=== PATIENT | male | born 1950 | race Caucasian/White ===

== ENCOUNTER → 2020-11-28 09:37 | Outpatient (CLI) | payer MEDICARE, SELFPAY ==
--- NOTE | 2020-11-28 09:46 | XR_ITS ---
PROCEDURE: XR SHOULDER LT MIN 2V CLINICAL INDICATION: S/P LT SHOULDER INJURY, OLD FALL COMPARISON: No exams were available for comparison FINDINGS: No fracture or dislocation. No lytic or blastic change. There is normal mineralization. There is a high-riding humeral head with severe subacromial stenosis consistent with rotator tear. Osteoarthritic changes are present at the glenohumeral joint. Other findings:None. 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 Dictated by: Elie George MD 11/28/2020 10:08 Elie George MD in [place] 11/28/2020 10:08
== END ==
PROVIDERS: PCP Internal Medicine; Visit Provider Internal Medicine
DX: M25.512 Pain in left shoulder (principal)
CPT/HCPCS: 73030

== ENCOUNTER → 2021-03-06 17:57 | Outpatient (CLI) | payer MEDICARE, SELFPAY ==
[2021-03-06 19:18] LABS: Basophils # 0.1 K/mm3 (0-0.2); Basophils % 0.7 % (0.1-2.0); Eosinophils # 0.3 K/mm3 (0.0-0.4); Eosinophils % 4.2 % (0.1-12.0); Hematocrit 45.4 % (42.0-52.0); Hemoglobin 15.5 g/dL (14.1-18.0); Lymphocytes # 1.4 K/mm3 (0.7-4.5); Lymphocytes % 16.9 % (10-50); Mean Corpuscular HGB Conc 34.1 g/dL (31.8-35.4); Mean Corpuscular Volume 90.6 fl (80-94); Mean Platelet Volume 10.4 fl (7.4-10.4); Monocytes # 0.6 K/mm3 (0.1-1.0); Monocytes % 6.9 % (1.7-9.3); Neutrophils # 5.7 K/mm3 (1.8-7.8); Neutrophils % 71.2 % (37.0-80.0); Platelet Count 321 K/mm3 (142-424); Red Blood Count 5.01 M/mm3 (4.60-6.20); Red Cell Distribution Width 14.1 % (11.5-17.5)
[2021-03-06 19:32] LABS: Chloride 101 mmol/L (98-107); Sodium 139 mmol/L (136-145)
[2021-03-06 19:33] LABS: Potassium 4.4 mmoL/L (3.5-5.1)
[2021-03-06 19:35] LABS: Alanine Aminotransferase 21 U/L (12-78); Alkaline Phosphatase 69 U/L (38-126); Aspartate Amino Transferase 41 U/L (17-59); Bilirubin,Total 0.6 mg/dl (0.2-1.3); Blood Urea Nitrogen 18 mg/dl (9-20); Estimated Glomerular Filt Rate 60 ml/min (>60); GFR (African American) 72 ML/MIN (>60)
[2021-03-06 19:36] LABS: Albumin Level 4.4 g/dl (3.5-5.0); Albumin/Globulin Ratio 1.5 (1.1-1.8); Anion Gap 15.4 mEq/L (5-15); Calcium 10.2 mg/dl (8.4-10.2); Carbon Dioxide 27 mmol/L (22.0-30.0); Chol/HDL Ratio 3.5 (1-3.5); Cholesterol 133 mg/dl (140-200); Globulin 2.9 g/dL (1.3-3.2); Glucose 98 mg/dl (74-100); HDL Cholesterol 38 mg/dl (40-60); Total Protein,Serum 7.3 g/dl (6.3-8.2); Triglycerides 156 mg/dl (30-150); VLDL Cholesterol 31 mg/dL (0-40)
[2021-03-06 19:47] LABS: Direct LDL Cholesterol 65.98 mg/dL (100-129)
[2021-03-06 19:53] LABS: Free T4 (Free Thyroxine) 0.95 ng/dl (0.78-2.19)
[2021-03-06 19:54] LABS: 25-OH Vitamin D, Total 61.2 ng/mL (30-100)
[2021-03-06 20:14] LABS: Thyroid Stimulating Hormone 1.99 uIU/mL (0.465-4.68)
== END ==
PROVIDERS: Visit Provider Emergency Medicine
DX: E55.9 Vitamin D deficiency, unspecified (principal); R53.83 Other fatigue; E78.5 Hyperlipidemia, unspecified
CPT/HCPCS: 80053; 80061; 82306; 84439; 84443; 85025

== ENCOUNTER → 2021-03-20 09:59 | Outpatient (CLI) | payer MEDICARE, SELFPAY ==
--- NOTE | 2021-03-20 10:00 | CA_ITS ---
APPROVED REPORT EXAM: Comprehensive 2D, Doppler, and color-flow Echocardiogram Box Sealing Machine Catcher: Barbara Vela RVT Ht: 5 ft 8 in Wt: 156lbs BSA: 1.84 BP: 138/78 mmHg Indications: MURMUR,HTN,HLD 2D Dimensions IVSd 1.20 cm M: 0.6-1.2 LVEF (Visual) 65.20 % PWd 0.84 cm M: 0.6 - 1.2 LA Volume 32.00 mL LVDd 3.70 cm M: 4.2 - 5.9 LA Volume Index 17.39 mL/m2 (M/F) 16-34 LVDs 2.40 cm M: 2.5 - 4.0 LVOT 2.22 cm (M/F) 1.5-2.5 M-Mode Dimensions LA Diam 4.12 cm (1.9-4.0) Ao Diam 3.30 cm (2.0-3.7) TAPSE 1.98 (<1.7) LV Diastology E Decel Time 350.00 (160-240 msec) E/A Ratio 0.5 MED E' 5.40 (< 7 cm/sec) E'/MED E' Ratio 8.07 (>14) LAT E' 11.10 (<10 cm/sec) E/LAT E' Ratio 3.93 (>14) Aortic Valve AI PHT 1375.00 ms Mitral Valve MV E Max Antonio. 44.00 (40-130 cm/s) MV A Velocity 83.00 (40-130 cm/s) E/A Ratio 0.52 MV Decel. Time 350.00 (160-240 ms) MV PHT 103.00 ms Pulmonary Valve PV Peak Velocity 59.00 (50-150 cm/s) Tricuspid Valve TR P. Velocity 174.00 cm/s RAP Estimate 10.00 mmHg RVSP 22.20 mmHg Left Ventricle Left atrium is mildly enlarged, left ventricle is normal size, mild concentric left ventricular hypertrophy, visually estimated ejection fraction 55% with no regional wall motion abnormality, grade 1 diastolic dysfunction seen without tissue Doppler evidence of raise left atrial pressure. Right Ventricle Right atrium and right ventricle are normal size and contractility. Aortic Valve Aortic valve is minimally thickened and fibrosed, there is no aortic stenosis, there is mild aortic insufficiency. Mitral Valve Mitral valve is grossly normal, there is trace mitral regurgitation. Tricuspid Valve Tricuspid valve grossly normal, there is trace tricuspid regurgitation, tricuspid regurgitation jet velocity is inadequate for calculation of the right ventricular systolic pressure. Pulmonic Valve Pulmonic valve is poorly visualized. Great Vessels Aortic root is normal size. Inferior vena cava is poorly visualized. Pericardium No significant pericardial effusion noted. Conclusion 1. Mildly enlarged left atrium, normal left ventricular size, mild concentric left ventricular hypertrophy, visually estimated ejection fraction 55% with no regional wall motion abnormality, grade 1 diastolic dysfunction seen without tissue Doppler evidence of raise left atrial pressure. 2. Mild aortic, trace mitral and tricuspid regurgitation. 3. No significant pericardial effusion. 4. Inferior vena cava is poorly visualized. Electronically signed by : Demetrius Dewey MD 03/20/2021 19:57:51
== END ==
PROVIDERS: PCP Emergency Medicine; Visit Provider Emergency Medicine
DX: R01.1 Cardiac murmur, unspecified (principal)
CPT/HCPCS: 93306

== ENCOUNTER → 2022-06-08 15:38 | Outpatient (CLI) | payer MEDICARE, SELFPAY ==
[2022-06-08 16:13] LABS: Basophils # 0.1 K/mm3 (0-0.2); Basophils % 0.8 % (0.1-2.0); Eosinophils # 0.3 K/mm3 (0.0-0.4); Eosinophils % 4.3 % (0.1-12.0); Hematocrit 45.2 % (42.0-52.0); Hemoglobin 15.2 g/dL (14.1-18.0); Lymphocytes # 1.2 K/mm3 (0.7-4.5); Lymphocytes % 19.8 % (10-50); Mean Corpuscular HGB Conc 33.7 g/dL (31.8-35.4); Mean Corpuscular Hemoglobin 30.9 pg (27.0-31.2); Mean Corpuscular Volume 91.5 fl (80-94); Mean Platelet Volume 10.2 fl (7.4-10.4); Monocytes # 0.5 K/mm3 (0.1-1.0); Monocytes % 8.5 % (1.7-9.3); Neutrophils % 66.6 % (37.0-80.0); Platelet Count 297 K/mm3 (142-424); Red Blood Count 4.93 M/mm3 (4.60-6.20); Red Cell Distribution Width 13.8 % (11.5-17.5)
[2022-06-08 16:34] LABS: Alanine Aminotransferase 20 U/L (12-78); Albumin Level 4.1 g/dl (3.5-5.0); Albumin/Globulin Ratio 1.5 (1.1-1.8); Alkaline Phosphatase 61 U/L (38-126); Anion Gap 10.5 mEq/L (5-15); Aspartate Amino Transferase 32 U/L (17-59); Bilirubin,Total 0.9 mg/dl (0.2-1.3); Blood Urea Nitrogen 18 mg/dl (9-20); Carbon Dioxide 28 mmol/L (22.0-30.0); Chloride 102 mmol/L (98-107); Chol/HDL Ratio 5.3 (1-3.5); Cholesterol 190 mg/dl (140-200); Estimated Glomerular Filt Rate 54 ml/min (>60); GFR (African American) 65 ML/MIN (>60); Globulin 2.7 g/dL (1.3-3.2); Glucose 104 mg/dl (74-100); HDL Cholesterol 36 mg/dl (40-60); Potassium 4.5 mmoL/L (3.5-5.1); Sodium 136 mmol/L (136-145); Total Protein,Serum 6.8 g/dl (6.3-8.2); Triglycerides 138 mg/dl (30-150); VLDL Cholesterol 28 mg/dL (0-40)
[2022-06-08 16:45] LABS: Direct LDL Cholesterol 111.59 mg/dL (100-129)
[2022-06-08 17:10] LABS: 25-OH Vitamin D, Total 49.2 ng/mL (30-100)
[2022-06-08 17:11] LABS: Free T4 (Free Thyroxine) 0.84 ng/dl (0.78-2.19)
== END ==
PROVIDERS: PCP Emergency Medicine; Visit Provider Emergency Medicine
DX: E55.9 Vitamin D deficiency, unspecified (principal); I10 Essential (primary) hypertension; Z79.899 Other long term (current) drug therapy
CPT/HCPCS: 80053; 80061; 82306; 84439; 84443; 85025

== ENCOUNTER 2022-07-02 10:17 | Emergency (ER) | payer MEDICARE, SELFPAY ==
[2022-07-02] VITALS (11 sets, daily range): BP systolic 120–163; BP diastolic 64–78; PULSE 54–76; RESP 18–20; TEMP 36.6–36.8; O2SAT 95–99; BMI 23.6; BMI 22.8
--- NOTE | 2022-07-02 11:12 | EXP.UTC ---
Discharge Plan Disposition Patient Disposition: Home, Self-Care Condition: Good Prescriptions Prescriptions: No Action aspirin [Adult Aspirin Regimen] 81 mg tablet,delayed release (DR/EC) 81 mg PO DAILY tamsulosin [Flomax] 0.4 mg capsule 0.4 mg PO DAILY metoprolol tartrate 50 mg tablet See Rx Instructions .ROUTE .COMPLEX Rx Instructions: Take 1 tablet by mouth twice daily rosuvastatin 10 mg tablet See Rx Instructions .ROUTE .COMPLEX Rx Instructions: TAKE 1 TABLET BY MOUTH AT BEDTIME Referrals Follow up/Referrals: Mart Liu MD [Primary Care Provider] - See instructions Activity Restrictions/Add. Instructions Additional Instructions/Restrictions: Follow-up with ENT at next week. Follow-up with orthopedics and seen at the end of this week. Return for any concerns within the next few days. Clinical Impressions Clinical Impression: Facial bones, closed fracture, Closed hand fracture Discharge ED Provider: Vincent Roblero [facility] <Maribeth Guerra APRN - Last Filed: 07/02/22 20:02> General Chief complaint: Fall Stated complaint: [email or web address] [id number] LT eye bruising, LT hand pain Mode of Arrival: Ambulatory Source of Information: Patient Limitations: No Limitations Time Seen by Provider: 07/02/22 11:12 Description of Symptoms (Recalled from Triage Doc. by RN): fell yesterday and hit a flower pot. His left eye is brusied, left hand swollen, pain in wrist, and left ribs hurt. HEENT Symptoms (Recalled from RN notes): No Resp Symptoms (Recalled from RN notes): No Skin Symptoms (Recalled from RN notes): Yes MS Symptoms (Recalled from RN notes): No Functional Status (Recalled from RN notes): n/a History of Present Illness Provider Complaint: Patient states that he tripped and fell over flower pot at home and he fell States that he has bruising around eye thinks it maybe from his glasses States area is sore and had some bleeding yesterday but that has since closed and the area under his eyes is sore, States that he is having pain in his left hand and little finger and pain in his left rib area States that today his hand was hurting worse and still having rib pain so he came in Denies LOC denies SOA Related Data Home Medications Medication Instructions Recorded Confirmed aspirin 81 mg tablet,delayed 81 mg PO DAILY . 07/02/22 07/02/22 release (Adult Aspirin Regimen) metoprolol tartrate 50 mg tablet See Rx Instructions .Route 07/02/22 07/02/22 .COMPLEX . rosuvastatin 10 mg tablet See Rx Instructions .Route 07/02/22 07/02/22 .COMPLEX . tamsulosin 0.4 mg capsule (Flomax) 0.4 mg PO DAILY . 07/02/22 07/02/22 Allergies Allergy/AdvReac Type Severity Reaction Status Date / Time amlodipine AdvReac Intermediate swelling Verified 07/02/22 11:11 Worker's Comp Is this a Worker's Comp case?: No PFSH <Maribeth Guerra APRN - Last Filed: 07/02/22 20:02> PFS Disclaimer: The information contained in this section may have been updated after the patient was seen, as this information can be updated by other users. Social History Smoking Status: Never smoker alcohol intake: never substance use type: denies use current occupational status: employed Travel in the last 8 weeks: None <Maribeth Guerra APRN - Last Filed: 07/02/22 20:02> ROS Obtained: Yes All systems reviewed & no additional complaints except as documented and Yes Systems reviewed as appropriate & no additional complaints except as documented Constitutional Constitutional: Reports system reviewed and no additional complaints, except as documented and Reports as per HPI Eyes Eyes: Reports system reviewed and no additional complaints, except as documented, Reports as per HPI, Denies blurry vision and Denies change in vision Comments: bruising noted around eye with cut noted on eyelash area and on cheek tender to touch ENT Ears, Nose, Mouth, and Throat: Reports s
--- NOTE | 2022-07-02 11:14 | XR_ITS ---
FINAL REPORT CLINICAL HISTORY: fall FINDINGS: A PA view of the chest and oblique views of the left ribs were obtained. There is no prior exam for comparison. The cardiac and mediastinal silhouettes are within normal limits. There is evidence of prior granulomatous disease. There is linear opacity in the left lung base which is likely atelectasis or scarring. There is no pneumothorax. Oblique views of the left ribs reveal no displaced rib fracture. IMPRESSION: No acute left rib fracture and no pneumothorax. Reviewed, Interpreted and Dictated by Joanne Osman MD Transcribed by Chel Krueger Authenticated and [facility]
--- NOTE | 2022-07-02 11:14 | XR_ITS ---
FINAL REPORT CLINICAL HISTORY: fall FINDINGS: AP, oblique, and lateral views of the left hand were obtained. There is no prior exam for comparison. There is a fracture at the base of the 5th metacarpal which extends to the 5th CMC joint. No other acute fracture is identified. Deformity of the distal 5th metacarpal is chronic. There is mild degenerative disease. There is mild degenerative joint disease. IMPRESSION: Fracture of the base of the 5th metacarpal extending to the 5th CMC joint. Deformity of the distal 5th metacarpal is chronic. Reviewed, Interpreted and Dictated by Joanne Osman MD Transcribed by Chel Krueger Authenticated and [facility]
--- NOTE | 2022-07-02 11:14 | XR_ITS ---
FINAL REPORT CLINICAL HISTORY: fall FINDINGS: AP, oblique, and lateral views of the left wrist were obtained. There is no prior exam for comparison. There is no acute fracture or dislocation. There is irregularity of the base of the 5th metacarpal. There is multi joint degenerative disease. The soft tissues are normal. IMPRESSION: No acute osseous abnormality of the left wrist. Irregularity at the base of the 5th metacarpal, see report for left hand for further details. Reviewed, Interpreted and Dictated by Joanne Osman MD Transcribed by Chel Krueger Authenticated and [facility]
--- NOTE | 2022-07-02 11:16 | XR_ITS ---
FINAL REPORT CLINICAL HISTORY: fall FINDINGS: FACIAL BONES 3 views were obtained. There is an age indeterminate irregularity of the floor of the left orbit which may be chronic, however, there may be a small amount of fluid or mucoperiosteal thickening in the left maxillary sinus. No other acute osseous abnormality is seen. Remaining paranasal sinuses are grossly clear. Nasal septum is midline. IMPRESSION: Age indeterminate irregularity of the floor the left orbit, may be chronic. Consider CT as a more sensitive exam. Reviewed, Interpreted and Dictated by Joanne Osman MD Transcribed by Chel Krueger Authenticated and [facility]
--- NOTE | 2022-07-02 12:53 | CT_ITS ---
FINAL REPORT TECHNIQUE: Thin section axial images were obtained through the face without contrast. Coronal reconstruction images are obtained from the axial data. CLINICAL HISTORY: trauma, fall, hit lt eye/side of face FINDINGS: There is a fracture of the left orbital floor which is nondisplaced. There is no herniation of fat or muscle through the defect. There is a small amount of air within the lateral or mint, adjacent to the lateral rectus muscle. There are fractures through the lateral roof and lateral orbital wall which are nondisplaced. Findings are best seen on axial image 21. There is also a fracture of the anterior wall and likely of the lateral wall of the left maxillary sinus. IMPRESSION: Left orbital and left maxillary sinus fractures as above. Small amount of fluid seen in the left maxillary sinus. Reviewed, Interpreted and Dictated by Joanne Osman MD Transcribed by Delia Hu Authenticated and [facility]
--- NOTE | 2022-07-02 12:53 | CT_ITS ---
FINAL REPORT TECHNIQUE: Thin section axial images were obtained through the cervical spine without contrast. Multiplanar reconstruction images were obtained from the axial data. Exam was performed using dose reduction techniques. CLINICAL HISTORY: trauma, fall, hit lt eye/side of face FINDINGS: There is no acute fracture or acute malalignment of the cervical spine. There is no evidence of unilateral or bilateral facet lock. There is multilevel degenerative disc disease which is most pronounced in the mid cervical spine. No acute paraspinal abnormality is identified. IMPRESSION: No acute osseous abnormality of the cervical spine. Degenerative disc disease. Reviewed, Interpreted and Dictated by Joanne Osman MD Transcribed by Chel Krueger Authenticated and . [facility]
--- NOTE | 2022-07-02 12:53 | CT_ITS ---
FINAL REPORT TECHNIQUE: Thin section axial images were obtained from skull base to vertex without contrast. Coronal reconstruction images were obtained from the axial data. Exam was performed using dose reduction technique. CLINICAL HISTORY: head injury, fall, hit lt eye/side of face FINDINGS: There is mild, age-appropriate atrophy. Periventricular hypodensity likely represents chronic small vessel ischemia. There is no mass effect or midline shift. There is no hydrocephalus. There is no intracranial hemorrhage. The posterior fossa is without acute abnormality. The basilar cisterns are preserved. There is left periorbital soft tissue edema. Air-fluid level is seen in the left maxillary sinus. No skull fracture identified. IMPRESSION: No acute intracranial abnormality. Fluid in left maxillary sinus with left periorbital soft tissue edema. See CT face. Reviewed, Interpreted and Dictated by Joanne Osman MD Transcribed by Delia Hu Authenticated and [facility]
--- NOTE | 2022-07-02 13:36 | PC.NURSE ---
rounded on pt states no complaints at this time. @ bs
--- NOTE | 2022-07-02 14:21 | PC.NURSE ---
rounded on pt. resting in bed. call light within reach. no questions or concerns voiced.
--- NOTE | 2022-07-02 15:00 | PC.NURSE ---
STEFAN NASSAR speaking with [facility]
--- NOTE | 2022-07-02 15:04 | PC.NURSE ---
rad states sending down preliminary on ct cspine
--- NOTE | 2022-07-02 15:04 | PC.NURSE ---
[facility] requesting face sheet faxed to [phone] states they are setting up a f/u appt for pt in clinic next, they will call the pt with appt.
--- NOTE | 2022-07-02 15:07 | PC.NURSE ---
face sheet faxed at this time
--- NOTE | 2022-07-02 15:34 | PC.NURSE ---
Bernadette from [facility] called back to [facility] ED to obtain patient contact number, NOK, and address for follow up
== END 2022-07-02 15:19 | disposition home or self-care (01) ==
LOC: UTC 10:30 → ER 12:49
PROVIDERS: Emergency Provider Emergency Medicine; PCP Emergency Medicine
DX: S02.32XA Fracture of orbital floor, left side, initial encounter for closed fracture (principal); S02.40DA Maxillary fracture, left side, initial encounter for closed fracture; S62.306A Unspecified fracture of fifth metacarpal bone, right hand, initial encounter for closed fracture; W01.0XXA Fall on same level from slipping, tripping and stumbling without subsequent striking against object, initial encounter
CPT/HCPCS: 29125; 70150; 70450; 70486; 71101; 72125; 73110; 73130; 99284; 99285

== ENCOUNTER → 2023-01-08 11:21 | Outpatient (CLI) | payer MEDICARE, SELFPAY ==
--- NOTE | 2023-01-08 11:25 | XR_ITS ---
FINAL REPORT CLINICAL HISTORY: left shoulder pain, fell in feb, pops when raising arms FINDINGS: 3 views of the left shoulder were obtained. There is no acute fracture or dislocation. There are moderate degenerative changes of the acromioclavicular and glenohumeral joints. There are no soft tissue abnormalities. IMPRESSION: No acute process. Reviewed, Interpreted and Dictated by Archie Salas III, MD Transcribed by Evgeny Graves Authenticated and . [facility]
== END ==
PROVIDERS: PCP Emergency Medicine; Visit Provider Orthopaedic Surgery
DX: M25.512 Pain in left shoulder (principal)
CPT/HCPCS: 73030

== ENCOUNTER 2023-03-07 14:00 | Outpatient (RCR) | payer MEDICARE, SELFPAY ==
--- NOTE | 2023-01-14 11:57 | HMH.OTOPEV ---
OT Inpatient Evaluation Rehab OT Outpatient Eval Start: 01/14/23 11:33 Freq: Status: Active Protocol: Document 01/14/23 11:33 RMMAGNO (Rec: 01/14/23 11:57 [facility]ITAL[facility]ilio [id number]) E-signed By Lan Elliott, OT Outpatient Therapy Subjective History Subjective History Pt is a 72 year old male who reports to therapy for initial evaluation to left shoulder. Pt initially injured left shoulder in May 2022 when he fell on concrete landing on left shoulder. Since this injury, pt has has pain and decreased AROM at left shoulder. Pt has had an x-ray with no acute findings. Pt saw ortho on 01/09/23 and received a steroid injection to assist in pain. Upon evaluation, pt has significant weakness and lack of motion in abduction. He is unable to hold arm in supination at 90 degrees. He also has significant lack of motion in external rotation and internal rotation. Therapist does have concerns for possible rotator cuff tear. 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 Pt will continue to be seen twice a week in order to address left shoulder deficits. New diagnosis of cancer in past 12 No months? Chief Complaint Pain,Weakness Symptom Type Ache,Throb Symptoms Relieved By Rest/Positioning Symptoms Aggravated By Physical Activity,Lifting Prior Functional Limitations None Current Functional Limitations Reaching,Lifting,Housework, Dressing,Driving,Sleeping, Recreation Activity Symptom Description Intermittent,Activity Dependent Level of pain today (0-10) 0 Pain scale - at its best (0-10) 0 Pain scale - at its worst (0-10) 5 Shoulder/Elbow Eval Shoulder Objective Measurements Shoulder ROM Left Shoulder Abduction Active Range of 50 degrees Motion (degrees) Shoulder Flexion Active Range of Motion 120 degrees (degrees) Query Text: Shoulder External Rotation Active Range 20 degrees of Motion (degrees) Shoulder Internal Rotation Active Range 20 degrees of Motion (degrees) Shoulder MMT Shoulder Abduction Strength Grade 2+ Poor+ Shoulder Flexion Strength Grade 3- Fair- Shoulder External Rotation Strength 2+ Poor+ Grade Shoulder Internal Rotation Strength 2+ Poor+ Grade Shoulder Strength Patient Testing Sitting Position Elbow Objective Measurements QuickDASH Activities Please rate your ability to do the following activities in the last week by selecting the number below the appropriate response. 1. Open a tight or new jar. Mild difficulty 2. Do heavy welding machine operator arc (e.g., wash Mild difficulty goyal, floors). 3. Carry a shopping bag or briefcase. No difficulty 4. Wash your back. Mild difficulty 5. Use a knife to cut food. No difficulty 6. Recreational activities in which you Moderate difficulty take some force or impact through your arm, shoulder, or hand (e.g., golf, hammering, tennis, etc.). 7. During the past week, to what extent Not at all has your arm, shoulder or hand problem interfered with your normal social activities with family, friends, neighbors or groups? 8. During the past week, were you Slightly limited limited in your work or other regular daily activites as a result of your arm, shoulder or hand problem? 9. Arm, shoulder or hand pain. Moderate 10. Tingling (pins and needles) in your None arm, shoulder or hand. 11. During the past week, how much No difficulty difficulty have you had sleeping because of the pain in your arm, shoulder or hand? Quick DASH 19 Work Module (optional) The following questions ask about the impact of your arm, shoulder or hand problem on your ability to work (including homemaking if that is your main work role). 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 Yes 1. Using your usual technique for your Moderate difficulty work? 2. Doing your usual work because of arm, Mild difficulty shoulder or hand pain? 3. Doing your work as well as you would Mild difficulty like? 4. Spending your usual amount of time Mild difficulty doing your work? Quick Dash Work Module Score 9 OT Outpatient Assessment Impairments Problems/Impairments Palpation Tenderness,Impaired Range of Motion,Impaired Strength,Impaired Endurance, Impaired Lifting,Impaired Dressing,Impaired Household Care,Impaired Work Activities, Subjective C/O Pain Prognosis Rehab Potential Good Clinical Impression Consistent with Diagnosis Yes Short Term Goals Number of Weeks 3 Increase Range of Motion Yes: Flex: 130 Abd: 90 ER: 50 IR: 40 Increase Strength Yes: 3,3+/5 throughout left shoulder Increase Endurance Yes: Pt will tolerate L shoulder exercises for ~20 min prior to rest. Decrease Subjective C/O Pain Yes: 3/10 at worst Patient to be Ind w/ HEP Yes: AAROM Exercises; pulleys Mcfp Goals Number of Weeks 6 Increase Range of Motion Yes: Flex: 150 Abd: 110 ER: 75 ER: 60 Increase Strength Yes: 4-/5 throughout left shoulder Increase Endurance Yes: Pt will tolerate ~30 minutes of L shoulder exercises prior to rest. Decrease Subjective C/O Pain Yes: 04/17 at worst Patient to be Ind w/ Advanced HEP Yes: Advanced strengthening Outpatient Therapy Plan of Care Treatment Plan May Include Therapeutic Exercise Including Home Yes Exercise Program Manual Therapy Techniques Yes Therapeutic Activities to Return to Yes Previous Functional/Work Level ADL/Self Care Education Yes Thermal Modalities Yes Electrical Stimulation Yes Ultrasound/Phonophoresis Yes Iontophoresis Yes Parrafin Yes Orthotics/Bracing/Splinting Yes Massage Yes Eval/Re-Eval Yes Frequency Times per week 2 Duration Number of Weeks 6 Addendums This patient is a candidate for social No or vocational rehab? Patient/Guardian verbally acknowledges Yes understanding of treatment program and consents to further treatment? Patient/Guardian verbally acknowledges Yes understanding of diagnosis, prognosis and goals for treatment? Eval Complexity OT Charge 40943 - Moderate Complexity PHYSICIAN CERTIFICATION: I certify the specified therapy services for [facility] are required, authorized, and reviewed every 30 days.
--- NOTE | 2023-02-14 13:47 | HMH.RHREAS ---
Rehab Reassessment Rehab OP Re-assessment Start: 01/14/23 11:33 Freq: Status: Active Protocol: Document 02/14/23 13:40 FERDINAND (Rec: 02/14/23 13:47 FERDINAND [id number]) E-signed By Lan Elliott OT Rehab Re-assessment Subjective Subjective I still can't move it right. Objective Objective Notes Pt continues to be seen twice a week to address left shoulder deficits. Each session pt engages in AROM, AAROM, and strengthening exercises for left shoulder. Pt is also passively ranged in all planes; flexion, abduction, ER, and IR. Modalities are provided in order to decrease pain/ inflammation. Assessment Progress Assessment Slower Than Expected Assessment Notes At this time, pt demonstrates minimal improvement with AROM or strength at left shoulder. He continues to remain significantly limited with left arm. However, he reports he no longer has any pain in the arm. He also continues to have difficulty with daily tasks. Therapist recommends to continue therapy, but return to ortho as soon as possible for further evaluation and tx plan. Pt understanding and agreeable. Current AROM L shoulder Flex: 115 degrees Abd: 62 degrees ER: 45 degrees IR: [address] goals [address] and 5 LT and 5 Goals Not Met See below Revised Goals ST-3 LT-3 Plan Plan Continue with OT plan of care at this time to prevent any further loss of AROM or strength at left shoulder. Therapist recommends pt return to ortho for further evaluation and tx plan. Frequency of Therapy 2x's a week Duration of therapy 4 more weeks Time and Billing Re-Eval Time 11 Re-Eval Billing Units 1 PHYSICIAN CERTIFICATION: I certify the specified therapy services for Bon Marks are required, authorized, and reviewed every 30 days.
== END 2023-03-07 15:00 | disposition home or self-care (01) ==
LOC: OT 14:00
PROVIDERS: PCP Emergency Medicine; Visit Provider Orthopaedic Surgery
DX: M25.512 Pain in left shoulder (principal); M75.102 Unspecified rotator cuff tear or rupture of left shoulder, not specified as traumatic; M12.811 Other specific arthropathies, not elsewhere classified, right shoulder
CPT/HCPCS: 97010; 97014; 97110; 97140; 97164; 97166; 97530; G0283

== ENCOUNTER 2023-06-24 19:13 | Outpatient (CLI) | payer MEDICARE, SELFPAY ==
[2023-06-24 18:40] LABS: Basophils # 0.1 K/mm3 (0-0.2); Basophils % 0.9 % (0.1-2.0); Eosinophils # 0.3 K/mm3 (0.0-0.4); Eosinophils % 3.5 % (0.1-12.0); Hematocrit 47.6 % (42.0-52.0); Hemoglobin 15.1 g/dL (14.1-18.0); Lymphocytes # 1.3 K/mm3 (0.7-4.5); Lymphocytes % 18.1 % (10-50); Mean Corpuscular HGB Conc 31.7 g/dL (31.8-35.4); Mean Corpuscular Hemoglobin 31.2 pg (27.0-31.2); Mean Corpuscular Volume 98.3 fl (80-94); Mean Platelet Volume 9.2 fl (7.4-10.4); Monocytes # 0.7 K/mm3 (0.1-1.0); Monocytes % 9.7 % (1.7-9.3); Neutrophils # 4.8 K/mm3 (1.8-7.8); Neutrophils % 67.7 % (37.0-80.0); Platelet Count 232 K/mm3 (142-424); Red Blood Count 4.84 M/mm3 (4.60-6.20); Red Cell Distribution Width 14.1 % (11.5-17.5); White Blood Count 7.1 K/mm3 (4.8-10.8)
[2023-06-24 19:09] LABS: Hemoglobin A1C 5.7 % (4.0-6.0)
[2023-06-24 19:17] LABS: Alanine Aminotransferase 25 U/L (12-78); Albumin Level 4.3 g/dl (3.5-5.0); Albumin/Globulin Ratio 1.6 (1.1-1.8); Alkaline Phosphatase 61 U/L (38-126); Anion Gap 12.5 mEq/L (5-15); Aspartate Amino Transferase 38 U/L (17-59); Bilirubin,Total 0.7 mg/dl (0.2-1.3); Blood Urea Nitrogen 10 mg/dl (9-20); Calcium 9.4 mg/dl (8.4-10.2); Carbon Dioxide 29 mmol/L (22.0-30.0); Chloride 104 mmol/L (98-107); Chol/HDL Ratio 3.7 (1-3.5); Cholesterol 129 mg/dl (140-200); Estimated Glomerular Filt Rate 54 ml/min (>60); GFR (African American) 65 ML/MIN (>60); Globulin 2.7 g/dL (1.3-3.2); Glucose 98 mg/dl (74-100); HDL Cholesterol 35 mg/dl (40-60); Potassium 4.5 mmoL/L (3.5-5.1); Sodium 141 mmol/L (136-145); Triglycerides 129 mg/dl (30-150); VLDL Cholesterol 26 mg/dL (0-40)
[2023-06-24 19:29] LABS: Direct LDL Cholesterol 58.98 mg/dL (100-129)
[2023-06-24 19:35] LABS: 25-OH Vitamin D, Total 73.3 ng/mL (30-100)
[2023-06-24 19:48] LABS: Prostate Specific Ag Screen 13.7 ng/ml (0.0-4.0); Thyroid Stimulating Hormone 1.19 uIU/mL (0.465-4.68)
== END 2023-06-24 23:59 ==
LOC: LAB.DROPOF 19:14
PROVIDERS: PCP Family Medicine; Visit Provider Family Medicine
DX: I10 Essential (primary) hypertension (principal); E55.9 Vitamin D deficiency, unspecified; R73.09 Other abnormal glucose; Z12.5 Encounter for screening for malignant neoplasm of prostate; R53.83 Other fatigue; Z68.24 Body mass index [BMI] 24.0-24.9, adult
CPT/HCPCS: 80053; 80061; 82306; 83036; 84443; 85025; G0103

== ENCOUNTER 2023-10-07 10:55 | Outpatient (CLI) | payer MEDICARE, SELFPAY ==
[2023-10-07 19:48] LABS: Alanine Aminotransferase 28 U/L (12-78); Albumin/Globulin Ratio 1.5 (1.1-1.8); Alkaline Phosphatase 53 U/L (38-126); Anion Gap 12.8 mEq/L (5-15); Aspartate Amino Transferase 44 U/L (17-59); Bilirubin,Total 0.7 mg/dl (0.2-1.3); Blood Urea Nitrogen 14 mg/dl (9-20); Calcium 9.2 mg/dl (8.4-10.2); Carbon Dioxide 30 mmol/L (22.0-30.0); Chloride 100 mmol/L (98-107); Estimated Glomerular Filt Rate 59 ml/min (>60); GFR (African American) 71 ML/MIN (>60); Globulin 2.6 g/dL (1.3-3.2); Glucose 94 mg/dl (74-100); Potassium 4.8 mmoL/L (3.5-5.1); Sodium 138 mmol/L (136-145); Total Protein,Serum 6.6 g/dl (6.3-8.2)
[2023-10-07 21:24] LABS: Microalbumin/Creatinine Ratio 26.2
[2023-10-07 21:27] LABS: Creatinine,Urine Random 67 mg/dL (Not Estab.)
== END 2023-10-07 23:59 | disposition home or self-care (01) ==
LOC: LAB.DROPOF 10-08 10:58
PROVIDERS: PCP Internal Medicine; Visit Provider Internal Medicine
DX: N40.1 Benign prostatic hyperplasia with lower urinary tract symptoms (principal); R35.1 Nocturia; M75.102 Unspecified rotator cuff tear or rupture of left shoulder, not specified as traumatic; M12.812 Other specific arthropathies, not elsewhere classified, left shoulder; Z79.899 Other long term (current) drug therapy
CPT/HCPCS: 80053; 82043; 82570

== ENCOUNTER 2023-10-23 14:25 | Outpatient (CLI) | payer MEDICARE, SELFPAY | END 2023-10-23 23:59 | disposition home or self-care (01) | LOC: RAD 14:27 | PROVIDERS: PCP Internal Medicine; Visit Provider Internal Medicine | DX: M25.532 Pain in left wrist (principal) ==

== ENCOUNTER 2024-03-26 13:52 | Outpatient (CLI) | payer MEDICARE, SELFPAY ==
--- NOTE | 2024-03-26 13:59 | XR_ITS ---
FINAL REPORT CLINICAL HISTORY: especially the 3rd digit COMPARISON: None FINDINGS: 3 views of the right hand were obtained. There are mild diffuse arthritic changes. There are severe changes of osteopenia. There is a bone fragment along the dorsal third DIP joint. This is compatible with a fracture, although age-indeterminate. IMPRESSION: Age-indeterminate fracture along the dorsal third DIP joint likely arising from the third distal phalanx. Moderate diffuse arthritic changes. Reviewed, Interpreted and Dictated by Carolyn Murphy MD Transcribed by Liana Ocasio Authenticated and [facility]
== END 2024-03-26 23:59 | disposition home or self-care (01) ==
LOC: RAD 13:55
PROVIDERS: PCP Internal Medicine; Visit Provider Internal Medicine
DX: M79.644 Pain in right finger(s) (principal)
CPT/HCPCS: 73130

== ENCOUNTER 2024-08-10 14:37 | Outpatient (CLI) | payer MEDICARE, SELFPAY ==
[2024-08-10 18:21] LABS: Basophils # 0.1 K/mm3 (0-0.2); Basophils % 0.8 % (0.1-2.0); Eosinophils # 0.2 Kmm3 (0.0-0.4); Eosinophils % 2.4 % (0.1-12.0); Hematocrit 43.3 % (42.0-52.0); Hemoglobin 14.5 g/dL (14.1-18.0); Lymphocytes # 1.2 K/mm3 (0.7-4.5); Lymphocytes % 17.8 % (10-50); Mean Corpuscular HGB Conc 33.5 g/dL (31.8-35.4); Mean Corpuscular Hemoglobin 30.1 pg (27.0-31.2); Mean Corpuscular Volume 89.8 fl (80-94); Mean Platelet Volume 11.2 fl (7.4-10.4); Monocytes # 0.4 K/mm3 (0.1-1.0); Monocytes % 6.6 % (1.7-9.3); Neutrophils # 4.8 K/mm3 (1.8-7.8); Neutrophils % 71.5 % (37.0-80.0); Nucleated Red Blood Cells # 0 10^3/uL; Nucleated Red Blood Cells % 0 %; Platelet Count 238 K/mm3 (142-424); Red Blood Count 4.82 M/mm3 (4.60-6.20); Red Cell Distribution Width-SD 42.8 fL; White Blood Count 6.6 K/mm3 (4.8-10.8)
[2024-08-10 20:14] LABS: Alanine Aminotransferase 24 U/L (12-78); Albumin Level 4.2 g/dl (3.5-5.0); Albumin/Globulin Ratio 1.8 (1.1-1.8); Alkaline Phosphatase 61 U/L (38-126); Anion Gap 7.8 mEq/L (5-15); Aspartate Amino Transferase 34 U/L (17-59); Bilirubin,Total 0.8 mg/dl (0.2-1.3); Blood Urea Nitrogen 13 mg/dl (9-20); Calcium 9.2 mg/dl (8.4-10.2); Carbon Dioxide 29 mmol/L (22.0-30.0); Chloride 104 mmol/L (98-107); Cholesterol 121 mg/dl (140-200); Estimated Glomerular Filt Rate 65 ml/min (>60); GFR (African American) 79 ML/MIN (>60); Globulin 2.4 g/dL (1.3-3.2); Glucose 91 mg/dl (74-100); HDL Cholesterol 40 mg/dl (40-60); Potassium 4.8 mmoL/L (3.5-5.1); Sodium 136 mmol/L (136-145); Total Protein,Serum 6.6 g/dl (6.3-8.2); Triglycerides 105 mg/dl (30-150); VLDL Cholesterol 21 mg/dL (0-40)
[2024-08-10 20:25] LABS: Direct LDL Cholesterol 51.01 mg/dL (100-129); Hemoglobin A1C 5.5 % (4.0-6.0)
[2024-08-10 20:32] LABS: 25-OH Vitamin D, Total 59.7 ng/mL (30-100)
[2024-08-10 20:45] LABS: Prostate Specific Ag Screen 18.3 ng/ml (0.0-4.0); Thyroid Stimulating Hormone 1.48 uIU/mL (0.465-4.68)
== END 2024-08-10 23:59 | disposition home or self-care (01) ==
LOC: LAB.DROPOF 08-11 09:35
PROVIDERS: PCP Family Medicine; Visit Provider Family Medicine
DX: Z00.00 Encounter for general adult medical examination without abnormal findings (principal); E78.5 Hyperlipidemia, unspecified; R73.03 Prediabetes; E55.9 Vitamin D deficiency, unspecified; I10 Essential (primary) hypertension; Z12.5 Encounter for screening for malignant neoplasm of prostate
CPT/HCPCS: 80053; 80061; 82306; 83036; 84443; 85025; G0103